=== PATIENT | female | born 1940 | race Hispanic/Latino ===

== ENCOUNTER 2017-12-29 11:30 | Outpatient (CLI) | payer MEDICARE ==
--- NOTE | 2017-12-29 13:12 | XRay Report ---
CHEST TWO VIEWS: 12/29/17 11:30:00 CLINICAL: Right-sided chest pain.History of right breast cancer status post mastectomy in 2002 COMPARISON: None FINDINGS: Normal heart and pulmonary vasculature. The lungs are normally expanded and clear. No airspace disease or pleural effusion. No pulmonary nodule or mass.The bones and soft tissues are normal status post right mastectomy. IMPRESSION: Normal chest status post right mastectomy.
--- NOTE | 2017-12-29 13:13 | XRay Report ---
XRAY RIGHT RIBS 2 VIEWS: 12/29/17 11:30:00 CLINICAL: Right-sided chest pain FINDINGS: No rib fracture or rib lesion. The lungs are normally expanded. No pneumothorax. Normal heart and pulmonary vasculature. IMPRESSION: Normal. No rib fracture.
== END 2017-12-29 11:31 | disposition home or self-care (01) ==
LOC: SPVIMAG 11:30
PROVIDERS: ATTEND Internal Medicine
DX: R07.9 Chest pain, unspecified (principal); Z90.10 Acquired absence of unspecified breast and nipple
CPT/HCPCS: 71046

== ENCOUNTER 2018-03-23 10:47 | Outpatient (CLI) | payer MEDICARE, OTHER ==
--- NOTE | 2018-03-23 14:53 | XRay Report ---
XRAYCERVICAL SPINE THREE VIEWS: 03/23/18 10:47:00 CLINICAL: Left shoulder pain. FINDINGS: Straightening of the C-spine and exaggerated lordosis from C1-C3. Normal vertebral body alignment. Disc space narrowing and small osteophytes at C5-6 and C6-7. Moderate multilevel facet joint sclerosis. Normal odontoid and C1. No fracture. Normal soft tissues and airway. IMPRESSION: Moderate degenerative disc disease at C5-6 and C6-7 and moderate multilevel facet joint arthropathy.
--- NOTE | 2018-03-23 14:54 | XRay Report ---
XRAY LEFT SHOULDER THREE VIEWS: 03/23/18 10:47:00 CLINICAL: Pain FINDINGS: Mild osteopenia. No fracture or dislocation. Minimal glenohumeral joint arthritis. Normal acromioclavicular joint. No bone lesion. Normal soft tissues. IMPRESSION: Negative study except for mild osteopenia.
== END 2018-03-23 10:48 | disposition home or self-care (01) ==
LOC: SPVIMAG 10:47
PROVIDERS: ATTEND Internal Medicine
DX: M85.812 Other specified disorders of bone density and structure, left shoulder (principal); M50.322 Other cervical disc degeneration at C5-C6 level; M46.82 Other specified inflammatory spondylopathies, cervical region
CPT/HCPCS: 72040